=== PATIENT | male | born 1990 | race American Indian/Alaskan Native ===

== ENCOUNTER 2016-07-24 12:06 | Emergency (ER) | payer OTHER ==
--- NOTE | 2016-07-24 12:41 | Emergency Department Report ---
Chief Complaint: Allergic Reaction Stated Complaint: ALLERGIC REACTION Time Seen by Provider: 07/24/16 12:36 MSE screening note: Focused history and physical exam performed. Due to findings the following was ordered: ED Disposition for MSE Condition: Stable
[2016-07-24 12:42] VITALS: BP 116/84
--- NOTE | 2016-07-24 12:51 | Emergency Department Report ---
ED ENT HPI - General Chief complaint: Allergic Reaction Stated complaint: ALLERGIC REACTION Time Seen by Provider: 07/24/16 12:36 Source: patient Mode of arrival: Ambulatory Limitations: No Limitations - History of Present Illness Initial comments: PT states he has a hx of cold sores. PT States he has never had a rash this bad. PT States he started noticing bumps around his mouth a few days ago. PT states the bumps then drained. PT states sometimes the rash itches and he is not sure if he is having an allergic reaction. PT states sometimes he will itch after using Vaseline. PT states that he thinks the chapstick he was using has vaseline in it. MD complaint: other (rash around mouth ) -: days(s) Location: upper lip, lower lip Severity: mild Quality: other (itchy ) Consistency: constant Worsens with: other (rash is gradually worsening. ) Associated Symptoms: denies: fever, cough, toothache, pain with swallowing, sore throat - Related Data Home Medications Medication Instructions Recorded Confirmed Last Taken No Known Home Medications [No 07/24/16 07/24/16 Unknown Reported Home Medications] Allergies Allergy/AdvReac Type Severity Reaction Status Date / Time No Known Allergies Allergy Verified 07/24/16 12:42 ED Dental HPI - General Stated complaint: ALLERGIC REACTION Time Seen by Provider: 07/24/16 12:36 - Related Data Home Medications Medication Instructions Recorded Confirmed Last Taken No Known Home Medications [No 07/24/16 07/24/16 Unknown Reported Home Medications] Allergies Allergy/AdvReac Type Severity Reaction Status Date / Time No Known Allergies Allergy Verified 07/24/16 12:42 ED Review of Systems ROS: Stated complaint: ALLERGIC REACTION Other details as noted in HPI Comment: All other systems reviewed and negative Constitutional: denies: chills, fever ENT: denies: throat pain, dental pain, congestion Respiratory: denies: cough Genitourinary: other (denies rash ). denies: dysuria, discharge Skin: as per HPI, rash ED Past Medical Hx - Social History Smoking Status: Current Some Day Smoker Substance Use Type: Alcohol - Medications Home Medications: Home Medications Medication Instructions Recorded Confirmed Last Taken Type No Known Home Medications [No 07/24/16 07/24/16 Unknown History Reported Home Medications] ED Physical Exam - General Limitations: No Limitations General appearance: alert, in no apparent distress - Head Head exam: Present: atraumatic, normocephalic, normal inspection - Eye Eye exam: Present: normal appearance, PERRL, EOMI - ENT ENT exam: Present: normal orophraynx, mucous membranes moist - Expanded ENT Exam Expanded TM/Canal exam: Cerumen Impaction: Right TM, Left TM Mouth exam: Present: other (blisters and vesicles around mouth). Absent: drooling, trismus Teeth exam: Present: normal inspection Throat exam: Positive: normal inspection. Negative: tonsillar erythema, tonsillomegaly, tonsillar exudate - Neck Neck exam: Present: normal inspection, full ROM. Absent: tenderness, lymphadenopathy - Respiratory Respiratory exam: Present: normal lung sounds bilaterally. Absent: respiratory distress, chest wall tenderness - Cardiovascular Cardiovascular Exam: Present: regular rate, normal rhythm - Extremities Exam Extremities exam: Present: normal inspection, full ROM - Back Exam Back exam: Present: normal inspection, full ROM - Neurological Exam Neurological exam: Present: alert, oriented X3, normal gait - Psychiatric Psychiatric exam: Present: normal affect, normal mood - Skin Skin exam: Present: warm, dry, rash, vesicles ED Course - Reevaluation(s) Reevaluation #1: 07/24/16 13:00 PT aware of dx and plan of care. PT aware he will need to follow up with PCP or Health dept for further testing. - Pulse Oximetry Interpretation Digit-Finger Initial Pulse Oximetry Readin Actions Taken: none ED Medical Decision Making - Differential Diagnosis allergic reaction, herpes Critical Care Time: No Critical care attestation.: If time is entered above; I have spent that time in minutes in the direct care of this critically ill patient, excluding procedure time. ED Disposition Clinical Impression: Oral herpes simplex infection Disposition: DC- TO HOME OR SELFCARE Is pt being admited?: No Does the pt Need Aspirin: No Condition: Stable Instructions: Oral Herpes Simplex Virus Infections (ED) Referrals: PRIMARY CARE, [Primary Care Provider] - 3-5 Days [facility] [Outside] - 3-5 Days Forms: Work/School Release Form(ED) Time of Disposition: 13:04
== END 2016-07-24 13:45 | disposition home or self-care (01) ==
LOC: ED 12:06
DX: B00.9 Herpesviral infection, unspecified (principal); F17.200 Nicotine dependence, unspecified, uncomplicated
CPT/HCPCS: 99282

== ENCOUNTER 2016-08-04 11:35 | Emergency (ER) | payer OTHER ==
[2016-08-04 11:48] VITALS: BP 132/82
[2016-08-04] MEDS ORDERED: CLEOCIN PO ONE (13:16)
[2016-08-04] MEDS ORDERED: NORCO 5/325 PO ONE (13:16)
--- NOTE | 2016-08-04 13:21 | Emergency Department Report ---
ED ENT HPI - General Chief complaint: Skin/Abscess/Foreign Body Stated complaint: SWOLLEN GLANDS Time Seen by Provider: 08/04/16 12:59 Source: patient Mode of arrival: Ambulatory Limitations: No Limitations - History of Present Illness Initial comments: PT c/o having a swollen gland to his chin. PT states he first noticed some swelling yesterday. PT states that he drained a small spot today. PT denies dental pain and sore throat no relief with kassi GOFF complaint: other (swelling to chin) Onset/Timin -: Gradual, days(s) Location: other (chin ) Severity: severe Severity scale (0 -10): 8 Quality: sharp, constant Consistency: constant Improves with: none Worsens with: other (palpation ) Associated Symptoms: fever. denies: cough, gum swelling, toothache, pain with swallowing, sore throat, discharge from ear - Related Data Previous Rx's Medication Instructions Recorded Last Taken Type Acetaminophen/Codeine [Tylenol #3] 1 tab PO Q6H PRN #12 tab 08/04/16 Unknown Rx Clindamycin [Clindamycin CAP] 300 mg PO Q8H #30 cap 08/04/16 Unknown Rx Allergies Allergy/AdvReac Type Severity Reaction Status Date / Time No Known Allergies Allergy Verified 07/24/16 12:42 ED Dental HPI - General Chief complaint: Skin/Abscess/Foreign Body Stated complaint: SWOLLEN GLANDS Time Seen by Provider: 08/04/16 12:59 Source: patient Mode of arrival: Ambulatory Limitations: No Limitations - Related Data Previous Rx's Medication Instructions Recorded Last Taken Type Acetaminophen/Codeine [Tylenol #3] 1 tab PO Q6H PRN #12 tab 08/04/16 Unknown Rx Clindamycin [Clindamycin CAP] 300 mg PO Q8H #30 cap 08/04/16 Unknown Rx Allergies Allergy/AdvReac Type Severity Reaction Status Date / Time No Known Allergies Allergy Verified 07/24/16 12:42 ED Review of Systems ROS: Stated complaint: SWOLLEN GLANDS Other details as noted in HPI Comment: All other systems reviewed and negative Constitutional: fever (subjective ). denies: chills Respiratory: denies: cough, shortness of breath Cardiovascular: denies: chest pain Skin: change in color, other (drainage from chin) Hematological/Lymphatic: swollen glands ED Past Medical Hx - Past Medical History Previous Medical History?: No - Surgical History Past Surgical History?: Yes Additional Surgical History: RIGHT MIDDLE FINGER SURGERY - Social History Smoking Status: Never Smoker Substance Use Type: None - Medications Home Medications: Home Medications Medication Instructions Recorded Confirmed Last Taken Type Acetaminophen/Codeine [Tylenol #3] 1 tab PO Q6H PRN #12 tab 08/04/16 Unknown Rx Clindamycin [Clindamycin CAP] 300 mg PO Q8H #30 cap 08/04/16 Unknown Rx ED Physical Exam - General Limitations: No Limitations General appearance: alert, in no apparent distress - Head Head exam: Present: atraumatic, normocephalic, other (drianing abscess to R chin , localized erythema, tenderness and warmth. no area of flucuance palpable ) - Eye Eye exam: Present: normal appearance. Absent: conjunctival injection Pupils: Present: normal accommodation - ENT ENT exam: Present: normal exam, normal external ear exam, other (tommy cerumen impaction ) - Expanded ENT Exam Expanded TM/Canal exam: Cerumen Impaction: Right TM, Left TM Mouth exam: Absent: drooling, trismus Teeth exam: Present: dental caries (multiple ) Throat exam: Positive: normal inspection - Neck Neck exam: Present: normal inspection, full ROM. Absent: tenderness, lymphadenopathy - Respiratory Respiratory exam: Present: normal lung sounds bilaterally. Absent: respiratory distress - Cardiovascular Cardiovascular Exam: Present: regular rate, normal rhythm - Extremities Exam Extremities exam: Present: normal inspection, full ROM - Back Exam Back exam: Present: normal inspection, full ROM - Neurological Exam Neurological exam: Present: alert, oriented X3 - Psychiatric Psychiatric exam: Present: normal affect, normal mood - Skin Skin exam: Present: warm, dry, other (chin abscess currently draining ) ED Course Vital Signs 08/04/16 11:45 Temperature 99.5 F Pulse Rate 71 Respiratory 16 Rate Blood Pressure 132/82 O2 Sat by Pulse 99 Oximetry - Reevaluation(s) Reevaluation #1: 08/04/16 13:31 PT aware of dx and plan of care. PT given verbal instructions on home care. PT aware he will need recheck in 2 days - Pulse Oximetry Interpretation Digit-Finger Initial Pulse Oximetry Readin Actions Taken: none ED Medical Decision Making - Differential Diagnosis om, oe, dental abscess, chin abscess Critical care attestation.: If time is entered above; I have spent that time in minutes in the direct care of this critically ill patient, excluding procedure time. ED Disposition Clinical Impression: Abscess of chin, Bilateral impacted cerumen Disposition: TO HOME OR SELFCARE Is pt being admited?: No Does the pt Need Aspirin: No Condition: Stable Instructions: Cerumen Impaction (ED), Abscess (ED) Additional Instructions: Warm compresses at least 4 times a day Return in 2 days for wound recheck, return sooner if worsening No driving or ETOH after taking Tylenol #3 Prescriptions: Acetaminophen/Codeine [Tylenol #3] 1 tab PO Q6H PRN #12 tab PRN Reason: Pain , Severe (7-10) Clindamycin [Clindamycin CAP] 300 mg PO Q8H #30 cap Referrals: PRIMARY CARE, [Primary Care Provider] - 3-5 Days Forms: Work/School Release Form(ED) Time of Disposition: 13:33
== END 2016-08-04 13:48 | disposition home or self-care (01) ==
LOC: ED 11:35
DX: L02.01 Cutaneous abscess of face (principal); H61.23 Impacted cerumen, bilateral
CPT/HCPCS: 87076; 87116; 87186; 99282